=== PATIENT | female | born 1950 | race African-American/Black ===

== ENCOUNTER 2021-01-22 10:22 | Emergency (ER) | payer OTHER ==
[~2021-01-22] VITALS: Ht 160 cm; Wt 63.5 kg
[2021-01-22] MEDS ORDERED: ASA81BEC PO (10:33)
[2021-01-22 10:59] LABS: ABSOLUTE NEUTROPHILS 4.6 thou/uL (1.4-8.2); BASOPHILS 0.4 % (0.0-2.0); EOSINOPHILS 1.6 % (0.0-3.0); HEMOGLOBIN 13.5 gm/dL (12.0-15.0); LYMPHOCYTES 25.7 % (24.0-44.0); MCH 30.1 pg (26.0-34.0); MCV 91.2 fL (80.0-100.0); MONOCYTES 7.7 % (1.0-8.0); PLATELET COUNT 192 thou/uL (150-400); POLYS 64.6 % (36.0-66.0); RDW 14.5 % (10.5-14.5); WBC 7.1 thou/uL (4.0-11.0)
[2021-01-22 11:13] LABS: APTT 26.4 Seconds (24.5-32.8); PROTIME 10.9 Seconds (10.5-12.1)
[2021-01-22 11:17] LABS: ANION GAP 9 mmol/L (7-16); BUN 10 mg/dL (7-18); CALCIUM 9.2 mg/dL (8.5-10.1); CHLORIDE 109 mmol/L (98-107); CO2 26 mmol/L (21-32); CREATININE 1.2 mg/dL (0.6-1.0); GLUCOSE 121 mg/dL (74-106); POTASSIUM 3.7 mmol/L (3.5-5.1); SODIUM 144 mmol/L (136-145)
[2021-01-22 11:22] LABS: ALBUMIN 3.4 g/dL (3.4-5.0); SGOT 10 U/L (15-37); SGPT 14 U/L (14-59); TOTAL BILIRUBIN 0.2 mg/dL (0.2-1.0); TOTAL PROTEIN 7.6 g/dL (6.4-8.2); TROPONIN-I <0.06 ng/mL (<0.06)
[2021-01-22 13:37] VITALS: BP 150/100
--- NOTE | 2021-01-22 15:54 | EKG ---
[place] [address] [address] [facility] [place] [address] ELECTROCARDIOGRAM REPORT Name: SHAE MADDOX [id number] Admission: 01/22/21 Attend Phys: Discharge: 01/22/21 Date of : 54 Report #: [id number] [facility] ED Test Date: 2021-01-22 Test Time: 10:39:39 Pat Name: SHAE MADDOX Department: Room: Gender: F Methodologist: MPASUYAPA : 1950 Requested By: Delmar Shipley Order Number: [id number] MD: Иван De Leon Measurements Intervals [place] Rate: 72 P: -43 AK: 99 QRS: 23 QRSD: 89 T: 83 QT: 409 QTc: 448 Interpretive Statements Sinus rhythm Short AK interval No previous ECG available for comparison Electronically Signed On 01-22-2021 15:54:50 CDT by Иван De Leon [email or web address] <ELECTRONICALLY SIGNED> By: Иван De Leon MD, [facility] 01/22/21 1554 1039 [id number] Иван De Leon MD, FACC /EPI
== END 2021-01-22 13:38 | disposition home or self-care (01) ==
LOC: ER 10:22
PROVIDERS: Emergency Medicine
DX: I71.4 Abdominal aortic aneurysm, without rupture (principal); K92.1 Melena; C50.912 Malignant neoplasm of unspecified site of left female breast; F17.210 Nicotine dependence, cigarettes, uncomplicated; Z88.5 Allergy status to narcotic agent; Z79.82 Long term (current) use of aspirin